=== PATIENT | male | born 1980 | race African-American/Black ===

== ENCOUNTER 2019-05-24 15:33 | Inpatient (IN) ==
[2019-05-24] MEDS ORDERED: ONDANSETRON 4 MG/2 ML VIAL IV STA (16:10)
[2019-05-24] MEDS ORDERED: PANTOPRAZOLE 40 MG VIAL IV STA (16:10)
[2019-05-24] MEDS ORDERED: SODIUM CHLORIDE 0.9% 1,000 ML IV STA (16:10)
[2019-05-24 16:55] LABS: Basophils % 0.2 % (0.0-0.8); Eosinophils # 0.1 10*3/uL (0.0-0.87); Eosinophils % 1.2 % (0.00-10.9); Hematocrit 19.2 VOL% (42.0-52.0); Immature Granulocytes % 1.4 %; Immature Granulocytes Absolute 0.07 #; Lymphocytes % 19.9 % (21.2-54.2); Mean Corpuscular HGB Conc 31.8 GM/DL (32-36); Mean Corpuscular Volume 92.3 FL (87-102); Mean Platelet Volume 10.5 FL (9.6-12.0); NRBC # 0.06 10*3/uL; Neutrophils % 67.3 % (38.7-73.9); Platelet Count 171 T/CUMM (130-400); Red Blood Count 2.08 MC/CUMM (3.8-5.5); Red Cell Distribution Width 13.1 % (9.3-17.3)
[2019-05-24 17:10] LABS: INR 0.9; PT Patient Result 10.3 SECS
[2019-05-24 17:18] LABS: Alanine Aminotransferase 39 U/L (16-61); Albumin 3.6 G/DL (3.4-5.0); Alkaline Phosphatase 33 U/L (45-117); Aspartate Amino Transferase 28 U/L (0-37); Blood Urea Nitrogen 12 MG/DL (7-18); Calcium 8.5 MG/DL (8.5-10.1); Glucose 110 MG/DL (74-106); Osmolality,Calculated 279.4 MOS/KG (273-304); Total Protein 6.6 G/DL (6.4-8.3); Troponin I < 0.015 NG/ML (0.00-0.045)
[2019-05-24 17:19] LABS: Apearance,Urine CLEAR (Clear); Bilirubin,Urine Negative (Negative); Blood, Urine Negative (Negative); Glucose,Urine (UA) Negative (Negative); Ketones,Urine Negative (Negative); Mucus,Urine Occasional /LPF (Occasional); Nitrite,Urine Negative (Negative); Protein,Urine Negative; Urine Color Yellow (Yellow); Urine Specific Gravity 1.013 (1.001-1.035); Urine Urobilinogen < 2.0 EU/DL (0.2-1.0); WBC,Urine <1 /HPF (0-6)
[2019-05-24 17:20] LABS: Barbiturates Screen,Urine Negative (Negative); Benzodiazepines Screen,Urine Negative (Negative); Cannabinoid Screen,Urine Negative (Negative); Opiate Screen,Urine Negative (Negative); Phencyclidine Screen,Urine Negative (Negative)
[2019-05-24 17:21] LABS: Hemoglobin 6.1 GM/DL (14.0-18.0)
[2019-05-24] MEDS ORDERED: metroNIDAZOLE INJ 500 MG in PREMIX 1 EACH IV STA (17:49)
[2019-05-24] MEDS ORDERED: ONDANSETRON 4 MG/2 ML VIAL IV PRN (19:00)
[2019-05-24] MEDS ORDERED: FUROSEMIDE 20 MG/2 ML VIAL IV ONE (19:16)
[2019-05-24] MEDS ORDERED: SODIUM CHLORIDE 0.9% 1,000 ML IV PRN (20:19)
[2019-05-24 21:58] LABS: Hematocrit 18.2 VOL% (42.0-52.0)
[2019-05-24] MEDS: PANTOPRAZOLE INJ 200 MG in SODIUM CHLORIDE 0.9% 250 ML IV SCH (22:56)
[2019-05-25] MEDS: DEXTROSE 5% NACL 0.9% 1,000 ML IV SCH ×2 (01:35→05:26)
[2019-05-25] MEDS: PIPERACILLIN/TAZOBACTAM 3,375 MG in SODIUM CHLORIDE 0.9% 100 ML IV SCH ×4 (01:35→21:58)
[2019-05-25] MEDS ORDERED: FUROSEMIDE 20 MG/2 ML VIAL ONE (02:15)
[2019-05-25] MEDS: ACETAMINOPHEN 325 MG TABLET PO PRN ×2 (03:22→11:47)
[2019-05-25 08:01] LABS: Basophils % 0.2 % (0.0-0.8); Eosinophils # 0.1 10*3/uL (0.0-0.87); Eosinophils % 1.5 % (0.00-10.9); Hematocrit 20.8 VOL% (42.0-52.0); Hemoglobin 6.9 GM/DL (14.0-18.0); Immature Granulocytes % 0.6 %; Immature Granulocytes Absolute 0.03 #; Lymphocytes # 1.3 10*3/uL (1.4-4.0); Lymphocytes % 27.2 % (21.2-54.2); Mean Corpuscular HGB Conc 33.2 GM/DL (32-36); Mean Corpuscular Volume 87.8 FL (87-102); Monocytes % 9.1 % (1.7-12.7); NRBC # 0.05 10*3/uL; Neutrophils % 61.4 % (38.7-73.9); Platelet Count 156 T/CUMM (130-400); Red Blood Count 2.37 MC/CUMM (3.8-5.5); Red Cell Distribution Width 14.1 % (9.3-17.3); White Blood Count 4.7 T/CUMM (4-12)
[2019-05-25 08:29] LABS: Calcium 7.7 MG/DL (8.5-10.1); Osmolality,Calculated 277.4 MOS/KG (273-304); Risk Ratio 2.81; Thyroid Stimulating Hormone 2.98 uIU/ml (0.358-3.74); VLDL CHOLESTEROL 26.6 MG/DL
[2019-05-25] MEDS ORDERED: SODIUM CHLORIDE 0.9% 1,000 ML IV PRN (09:06)
[2019-05-25 13:53] LABS: Hematocrit 20.6 VOL% (42.0-52.0); Hemoglobin 6.6 GM/DL (14.0-18.0)
[2019-05-25] MEDS: SUCRALFATE 1 GM/10 ML UDCUP PO SCH ×2 (17:42→20:57)
[2019-05-25] MEDS ORDERED: FUROSEMIDE 20 MG/2 ML VIAL IV ONE (18:08)
[2019-05-25] MEDS: PANTOPRAZOLE INJ 200 MG in SODIUM CHLORIDE 0.9% 250 ML IV SCH (22:31)
[2019-05-25 23:20] LABS: Hematocrit 29.6 VOL% (42.0-52.0); Hemoglobin 9.6 GM/DL (14.0-18.0)
[2019-05-26] MEDS: DEXTROSE 5% NACL 0.9% 1,000 ML IV SCH ×3 (00:57→14:34)
[2019-05-26] MEDS: PIPERACILLIN/TAZOBACTAM 3,375 MG in SODIUM CHLORIDE 0.9% 100 ML IV SCH ×2 (05:45→14:35)
[2019-05-26 06:38] LABS: Basophils % 0.2 % (0.0-0.8); Eosinophils # 0.1 10*3/uL (0.0-0.87); Eosinophils % 1.6 % (0.00-10.9); Hematocrit 29.4 VOL% (42.0-52.0); Hemoglobin 9.6 GM/DL (14.0-18.0); Immature Granulocytes % 0.5 %; Immature Granulocytes Absolute 0.03 #; Lymphocytes # 1.2 10*3/uL (1.4-4.0); Lymphocytes % 21.6 % (21.2-54.2); Mean Corpuscular HGB Conc 32.7 GM/DL (32-36); Mean Platelet Volume 10.1 FL (9.6-12.0); Monocytes % 8.7 % (1.7-12.7); Neutrophils % 67.4 % (38.7-73.9); Platelet Count 162 T/CUMM (130-400); Red Blood Count 3.34 MC/CUMM (3.8-5.5); Red Cell Distribution Width 14.1 % (9.3-17.3); White Blood Count 5.8 T/CUMM (4-12)
[2019-05-26 07:05] LABS: Ferritin 26.2 ng/ml (26-388)
[2019-05-26] MEDS ORDERED: LACTATED RINGERS 1,000 ML IV SCH (08:00)
[2019-05-26 08:19] LABS: Calcium 8.1 MG/DL (8.5-10.1); Osmolality,Calculated 280.1 MOS/KG (273-304)
[2019-05-26 09:10] LABS: Folate 13.6 NG/ML (5.4-24.0)
[2019-05-26] MEDS ORDERED: PROPOFOL 200 MG/20 ML VIAL IV ONE (10:00)
[2019-05-26] MEDS ORDERED: LIDOCAINE 100 MG/5 ML SYRINGE ONE (10:00)
[2019-05-26 11:30] VITALS: BP 123/78
[2019-05-26] MEDS: SUCRALFATE 1 GM/10 ML UDCUP PO SCH ×2 (11:39→14:35)
[2019-05-28] MEDS ORDERED: PANTOPRAZOLE 40 MG VIAL IV SCH (09:00)
== END 2019-05-26 14:37 | disposition home or self-care (01) | DRG 378 ==
LOC: N.ED 15:33 → N.EDINP 19:00 → SUATTDRO 19:00 → N.2E 20:14
PROVIDERS: ADMIT Family Medicine; ATTEND Internal Medicine